=== PATIENT | female | born 1965 | race Caucasian/White ===

== ENCOUNTER 2021-01-02 20:37 | Emergency (ER) | payer MEDICARE, MEDICAID ==
--- NOTE | 2021-01-02 21:05 | EDM.PDOC ---
ED HPI GENERAL MEDICAL PROBLEM - General Stated Complaint: POSSIBLE OBJECT STUCK IN THROAT Time Seen by Provider: 01/02/21 21:04 - History of Present Illness INITIAL COMMENTS - FREE TEXT/NARRATIVE: History of present illness: [] Prior to arrival the patient noticed that she was missing the porcelain cap over her tooth. She also feels like she has something in her throat and points below her Allan's apple in the anterior neck. She has normal voice normal respiration no trouble breathing. Review of systems: As per history of present illness and below otherwise all systems reviewed and negative. Past medical history: As per history of present illness and as reviewed below otherwise noncontributory. Surgical history: As per history of present illness and as reviewed below otherwise noncontributory. Social history: No reported history of drug or alcohol abuse. Family history: As per history of present illness and as reviewed below otherwise noncontributory. Physical exam: Constitutional - well developed, well-nourished and in no acute distress HEENT - normocephalic, no evidence of trauma - external nose and mouth normal - no mass in neck and no JVD - mucosae moist EYES - full EOM, PERRL, no icterus - no evidence of inflammation, injection, or drainage Respiratory - no respiratory distress Musculoskeletal no gross deformity of long bones or joints - no tenderness, swelling or edema Neurologic - Alert and oriented times four - CN II-XII grossly intact - motor sensory and coordination symmetrically normal Psychiatric - appropriate mood and affect with normal thought content Hematologic - No petechiae or purpura - mucosa appropriate color and sclera not pale - normal nail bed color and refill Integument - no rash or evidence of trauma - normal turgor Diagnostics: [] Therapeutics: [] Impression: [] Plan: [] Definitive disposition and diagnosis as appropriate pending reevaluation and review of above. throat Pain Score (Numeric/FACES): 3 - Related Data Allergies Allergy/AdvReac Type Severity Reaction Status Date / Time No Known Allergies Allergy Verified 01/02/21 21:26 Home Meds: Home Meds Amphetamine/Dextroamphetamine [Adderall] 1 dose PO ASDIRECTED 01/02/21 [History] Clindamycin HCl 300 mg PO QID 3 Days #12 capsule 01/02/21 [Rx] ClonazePAM [KlonoPIN] 1 dose PO ASDIRECTED 01/02/21 [History] Furosemide [Lasix] 1 dose PO ASDIRECTED 01/02/21 [History] Levothyroxine 1 dose PO ASDIRECTED 01/02/21 [History] ED ROS GENERAL - Review of Systems Review Of Systems: Comprehensive ROS is negative, except as noted in HPI. ED EXAM, GENERAL - Physical Exam Exam: See Below Free Text/Narrative:: My physical exam is in the HPI Course - Vital Signs Text/Narrative:: No trouble swallowing. No trouble breathing. No stridor. Normal voice. Discharged with antibiotics in case he has a small esophageal abrasion. Last Recorded V/S: Last Vital Signs Temp 36.2 C 01/02/21 21:30 Pulse 97 01/02/21 21:30 Resp 18 01/02/21 21:30 BP 139/93 H 01/02/21 21:30 Pulse Ox 94 L 01/02/21 21:30 - Orders/Labs/Meds Orders: Active Orders 24 hr Category Date Time Status Chest 1V Frontal [CR] Stat Exams 01/02/21 21:29 Taken Neck Soft Tissue [CR] Stat Exams 01/02/21 21:05 Taken Departure - Departure Time of Disposition: 21:48 Disposition: Home, Self-Care 01 Condition: Good Clinical Impression: Esophageal abrasion - Discharge Information Instructions: Swallowed Foreign Body, Adult, [id number] Referrals: Arlette Dye, [facility] [Primary Care Provider] - Additional Instructions: Take antibiotic in case there is an esophageal abrasion so does not become an infection. If you still have symptoms after 2 days follow-up with ENT so they can actually look down your throat. Your prescription was sent to [facility] [place] which is open 12 5 tomorrow [facility] [address] [place] [address] [id number] [address] [id number] The following information is given to patients seen in the emergency department who are being discharged to home. This information is to outline your options for follow-up care. We provide all patients seen in our emergency department with a follow-up referral. The need for follow-up, as well as the timing and circumstances, are variable depending upon the specifics of your emergency department visit. If you don't have a primary care physician on staff, we will provide you with a referral. We always advise you to contact your personal physician following an emergency department visit to inform them of the circumstance of the visit and for follow-up with them and/or the need for any referrals to a consulting specialist. The emergency department will also refer you to a specialist when appropriate. This referral assures that you have the opportunity for follow-up care with a specialist. All of these measure are taken in an effort to provide you with optimal care, which includes your follow-up. Under all circumstances we always encourage you to contact your private physician who remains a resource for coordinating your care. When calling for follow-up care, please make the office aware that this follow-up is from your recent emergency room visit. If for any reason you are refused follow-up, please contact the [facility] Emergency Department at and asked to speak to the emergency department charge nurse. Sepsis Event Note (ED) - Focused Exam Vital Signs: Vital Signs Temp Pulse Resp BP Pulse Ox 01/02/21 21:30 36.2 C 97 18 139/93 H 94 L - My Orders Last 24 Hours: My Active Orders 01/02/21 21:05 Neck Soft Tissue [CR] Stat 01/02/21 21:29 Chest 1V Frontal [CR] Stat - Assessment/Plan Last 24 Hours: My Active Orders 01/02/21 21:05 Neck Soft Tissue [CR] Stat 01/02/21 21:29 Chest 1V Frontal [CR] Stat
--- NOTE | 2021-01-02 22:19 | CR ---
INDICATION: Possible ceramic foreign body swallowed TECHNIQUE: Soft tissue neck 2 view. COMPARISON: None FINDINGS: The airway is patent and normal. Epiglottis is normal. The retropharyngeal soft tissues are normal. No obvious masses. The visualized cervical spine demonstrates no acute findings. IMPRESSION: Unremarkable soft tissue view of the neck. No radiopaque foreign body identified. Dictated by Shari Gong MD @ 01/02/2021 10:18:17 PM (Electronically Signed)
--- NOTE | 2021-01-02 22:21 | CR ---
Indication: Possible ceramic foreign body swallowed Technique: Chest 1 view Comparison: None Findings/Impression: Cardiovascular and mediastinum: Heart size and vasculature are normal in caliber and appearance. Mediastinum is within normal limits. Lungs and pleural space: Lungs are clear. No sign of infiltrate or mass. No sign of pleural effusion. No pneumothorax. Bones and soft tissues: No significant findings. No radiopaque foreign body identified. Dictated by Shari Gong MD @ 01/02/2021 10:19:13 PM (Electronically Signed)
== END 2021-01-02 22:12 | disposition home or self-care (01) ==
LOC: MW.ED 20:37
DX: S27.818A Other injury of esophagus (thoracic part), initial encounter (principal); X58.XXXA Exposure to other specified factors, initial encounter
CPT/HCPCS: 70360; 70360-26; 71045; 71045-26; 99282; 99283-25

== ENCOUNTER 2021-05-15 15:51 | Emergency (ER) | payer MEDICARE, MEDICAID ==
[2021-05-15] MEDS ORDERED: Ibuprofen 600 MG Tab PO ONE (16:20)
== END 2021-05-15 18:19 | disposition home or self-care (01) ==
LOC: MW.ED 15:51
DX: M25.561 Pain in right knee (principal); I25.2 Old myocardial infarction
CPT/HCPCS: 73562; 99283; A9270; 99282

== ENCOUNTER 2023-07-08 14:19 | Emergency (ER) | payer MEDICARE, OTHER, MEDICAID ==
[2023-07-08 15:00] LABS: BASOPHILS ABSOLUTE AUTO 0.03 K/uL (0.00-0.20); BASOPHILS PERCENT AUTO 0.5 % (0.0-1.0); EOSINOPHILS ABSOLUTE AUTO 0.12 K/uL (0.00-0.45); EOSINOPHILS PERCENT AUTO 1.8 % (0.0-6.0); HEMATOCRIT 40.7 % (37.0-47.0); HEMOGLOBIN 14.3 g/dL (12.0-16.0); IMMATURE GRAN ABSOLUTE AUTO 0.01 K/uL (0.00-0.05); IMMATURE GRAN PERCENT AUTO 0.2 % (0.0-0.4); LYMPHOCYTES ABSOLUTE AUTO 2.37 K/uL (1.00-4.80); LYMPHOCYTES PERCENT AUTO 36.1 % (24.0-44.0); MEAN CORPUSCULAR HEMOGLOBIN 29.7 pg (28.0-32.0); MEAN CORPUSCULAR HGB CONC 35.1 g/dL (32.0-36.0); MEAN CORPUSCULAR VOLUME 84.6 fL (83.0-99.0); MEAN PLATELET VOLUME 9.3 fL (9.4-12.3); MONOCYTES ABSOLUTE AUTO 0.34 K/uL (0.00-0.80); MONOCYTES PERCENT AUTO 5.2 % (0.0-8.0); NEUTROPHILS PERCENT AUTO 56.2 % (41.0-71.0); PLATELET COUNT,PLT 307 K/uL (150-400); RED BLOOD CELL COUNT 4.81 M/uL (4.10-5.30); WHITE BLOOD CELL COUNT,WBC 6.57 K/uL (3.9-11.3)
[2023-07-08 15:13] LABS: A/G RATIO 0.8 (0.9-1.6); ALBUMIN 3.2 g/dL (3.4-5.0); BILIRUBIN TOTAL 0.4 mg/dL (0.2-1.0); CALCIUM 8.9 mg/dL (8.5-10.1); CARBON DIOXIDE,CO2 24.7 mmol/L (21.0-32.0); CREATININE 0.9 mg/dL (0.6-1.0); EST CRCL DRUG DOSING (CG) 61.31 mL/min; MAGNESIUM 1.8 mg/dL (1.8-2.4); POTASSIUM,K 3.7 mmol/L (3.5-5.1); PROTEIN TOTAL,TP 7.2 g/dL (6.4-8.2); TSH ULTRASENSITIVE 0.02 uIU/mL (0.36-3.74)
== END 2023-07-08 17:42 | disposition home or self-care (01) ==
LOC: MW.ED 14:19
DX: R06.02 Shortness of breath (principal); I10 Essential (primary) hypertension; I25.2 Old myocardial infarction; E03.9 Hypothyroidism, unspecified; Z79.899 Other long term (current) drug therapy
CPT/HCPCS: 36415; 71045; 71045-26; 80053; 83735; 84443; 84484; 85025; 85379; 93005; 93010; 99282; 99285

== ENCOUNTER 2024-04-12 12:33 | Emergency (ER) | payer MEDICAID, OTHER ==
[2024-04-12] MEDS: Lidocaine 4% Patch TOP STA (13:22)
[2024-04-12] MEDS: predniSONE 20 MG Tab PO ONE (13:22)
== END 2024-04-12 14:06 | disposition home or self-care (01) ==
LOC: MW.ED 12:33
DX: M54.41 Lumbago with sciatica, right side (principal); M54.42 Lumbago with sciatica, left side; I10 Essential (primary) hypertension; E78.00 Pure hypercholesterolemia, unspecified; I25.2 Old myocardial infarction; E03.9 Hypothyroidism, unspecified; Z79.890 Hormone replacement therapy; Z75.8 Other problems related to medical facilities and other health care; Z79.899 Other long term (current) drug therapy
CPT/HCPCS: 99283; A9270